=== PATIENT | male | born 1990 | race Caucasian/White ===

== ENCOUNTER 2020-01-07 00:08 | Emergency (ER) | payer SELFPAY ==
[~2020-01-07] VITALS: Ht 170.2 cm; Wt 117.9 kg
[2020-01-07 00:15] VITALS: BP_SYST 143
--- NOTE | 2020-01-07 00:25 | NUR ---
CALL PT NAME IN THE WR.NO RESPONSE.
--- NOTE | 2020-01-07 00:30 | NUR ---
CALL PT NAME IN THE WR.NO RESPONSE.
--- NOTE | 2020-01-07 00:35 | NUR ---
CALL PT NAME IN THE WR.NO RESPONSE.
== END 2020-01-07 00:35 | disposition left against medical advice (07) ==
LOC: SED 00:08
DX: I10 Essential (primary) hypertension (principal); Z53.21 Procedure and treatment not carried out due to patient leaving prior to being seen by health care provider

== ENCOUNTER 2021-04-17 20:17 | Emergency (ER) | payer MEDICAID ==
[~2021-04-17] VITALS: Ht 170.2 cm; Wt 120.2 kg
[2021-04-17 20:30] VITALS: BP_SYST 146
--- NOTE | 2021-04-17 20:38 | NUR ---
Patient to ER bed 6 to gown for evaluation. Side rails up. Report given to Sharon TA.
--- NOTE | 2021-04-17 20:40 | NUR ---
Assumed total care of patient. Patient AAO x4 from home c/o dysuria and lower abdominal pain x 2 weeks. Patient was seen at urgent care today and received antibiotics after being diagnosed with a UTI. Patient VSS, breathing even and unlabored, no signs of acute distress noted. Will continue to monitor.
--- NOTE | 2021-04-17 21:02 | NUR ---
ER Dr. Sanderson at bedside examining patient.
[2021-04-17 21:18] VITALS: BP_SYST 134
--- NOTE | 2021-04-17 21:18 | NUR ---
Patient given written and verbal discharge instructions and verbalizes understanding. ER MD discussed with patient the results and treatment provided. Patient in stable condition. ID arm band removed. no Rx given. Patient educated on pain management and to follow up with PMD. Pain Scale 0/10. Opportunity for questions provided and answered. Medication side effect fact sheet provided.
[2021-04-17 21:37] LABS: BILIRUBIN,URINE NEGATIVE (NEGATIVE); BLOOD, URINE 1+ (NEGATIVE); CLARITY/URINE CLEAR (CLEAR); COLOR,URINE YELLOW (YELLOW); GLUCOSE,URINE NEGATIVE (NEGATIVE); KETONES,URINE NEGATIVE (NEGATIVE); LEUKOCYTE ESTERASE ,URINE NEGATIVE (NEGATIVE); NITRITE, URINE NEGATIVE (NEGATIVE); PROTEIN URINE NEGATIVE (NEGATIVE); UROBILINOGEN,URINE 0.2 (0.2-1.0)
[2021-04-17 22:13] LABS: RBC,URINE 0-3 /HPF (0-3)
[2021-04-17 22:14] LABS: BACTERIA,URINE FEW /HPF (None Seen); MUCUS,URINE None Seen /LPF (None Seen); WBC,URINE 0-3 /HPF (0-3)
== END 2021-04-17 21:18 | disposition home or self-care (01) ==
LOC: SED 20:17
DX: N39.0 Urinary tract infection, site not specified (principal)
CPT/HCPCS: 81000; 99283